=== PATIENT | female | born 1950 | race Caucasian/White ===

== ENCOUNTER 2017-01-07 08:50 | Day surgery (SDC) | payer MEDICARE, OTHER ==
[~2017-01-07] VITALS: Ht 167.6 cm; Wt 68.0 kg
[~2017-01-07 08:50] MED LIST: ACID CONTROL150 MG PO; ADVIL200 MG PO; ASPIR 8181 MG PO; BACLOFEN10 MG PO; CARBAMAZEPINE200 MG PO; CEPHALEXIN500 MG PO; FLUOXETINE HCL20 MG PO; FLUTICASONE PRO16 GM NAS; HYDROCODON-ACE1 EA10 PO; IBUPROFEN400 MG PO; LEVOTHYROXINE50 MCG PO; NASONEX17 GM NAS; NORCO 5-325 TA1 EACH PO; OSTERA TABLET1 EACH PO; OXYTROL FOR WO1 EACH TD; SEROQUEL200 MG PO; STOOL SOFTENER100 MG PO; TEGRETOL XR100 MG PO; TOVIAZ8 MG PO; TRAMADOL HCL50 MG PO; VITAMIN C500 MG PO; VITAMIN E100 UNI1 PO; ZANTAC150 MG; [UNRECOGNIZED DRUG - OTHER] OTIC
--- NOTE | 2017-01-07 14:11 | NUR ---
01/07/17 1411 Yohana Keating 1407-PATIENT ARRIVED TO PACU ON 6L MASK O2 SAT 98% SR. PATIENT REACTIVE BRING HANDS TO FACE ORIENTED TO PLACE. EYES CLOSED. NO DRAINAGE NOTED SHUKRI PAD IN PLACE.
--- NOTE | 2017-01-07 15:05 | NUR ---
PATIENT BACK IN DAY SURGERY ROOM FROM PACU. C/O PAIN IN LOWER BACK. PERIPAD IN PLACE THAT IS CLEAN AND DRY. IV SITE WNL. SCDs ON. GIVEN ICE WATER AND JELLO. CAREGIVER AT BEDSIDE. PATIENT INSISTING TO SEE DR. MCNEIL. REQUESTS I CALL HIM TO COME SEE HER. CALL LIGHT WITHIN REACH.
[2017-01-07] MEDS ORDERED: IBUPROFEN800 MG PO (15:17)
[2017-01-07] MEDS ORDERED: NORCO 5-325 TA1 EACH PO (15:17)
--- NOTE | 2017-01-07 15:59 | NUR ---
PATIENT TOLERATED WATER, JELLO, AND PUDDING. DR MCNEIL IN TO VISIT WITH PATIENT. VS CHECKED. DISCHARGE INSTRUCTIONS GIVEN TO PATIENT AND CAREGIVER. SCDs ON. CALL LIGHT WITHIN REACH.
--- NOTE | 2017-01-07 16:27 | NUR ---
1615: PATIENT ASSISTED TO GET DRESSED. 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 GAIT STEADY. VOID X 1 WITHOUT DIFFICULTY. HAT IN TOILET WAS MISSED. GAIT STEADY. BACK TO ROOM. 1620: IV DC'D WNL. DRESSING APPLIED. GETTING SHOES ON. 1627: PATIENT DISCHARGED TO HOME VIA WHEELCHAIR WITH CAREGIVER.
--- NOTE | 2017-01-08 08:55 | OR ---
[facility] [address], [place] [address] Signed DATE OF PROCEDURE: 01/07/17 PREOPERATIVE DIAGNOSES Postmenopausal bleeding and thickened endometrium. POSTOPERATIVE DIAGNOSES Postmenopausal bleeding and thickened endometrium. PROCEDURE: Hysteroscopy with biopsy. SURGEON: Lamont Chua M.D. ANESTHESIA: General. ESTIMATED BLOOD LOSS: 10 mL. SPECIMEN: Endometrial tissue. DRAINS: None. FINDINGS Small cervix was slightly stenotic os. Uterine cavity sounded to 7 cm, was normal in size and shape. There was a large amount of fluffy endometrial tissue within the cavity making both ostia difficult to see. There was also midline soft tissue mass seemed to be coming from the fundus of the uterus. This was in the middle of the upper endometrial cavity. No other unusual masses or lesions seen. COMPLICATIONS: None. DESCRIPTION OF PROCEDURE The patient brought to the operating room, placed supine position. After adequate general anesthesia was obtained, was placed in dorsal lithotomy position, prepped and draped in usual sterile fashion. The introitus was rather small, so a Anay was used in the posterior vagina and then out and an Allis clamp used to grasp the anterior lip of the cervix. The cervix was too thin to admit the uterine sound, so very small cervical dilator was used and cervix dilated up to a #7-Estonian dilator. The uterine cavity was sounded to 7 cm and the hysteroscope placed in the cervix and entered the uterine cavity under direct visualization. Sterile saline was used as distending medium. The above findings were noted. The MyoSure LITE was then placed through the hysteroscope and the midline mass removed under direct visualization. The endometrial tissue was then also removed in 360-degree fashion starting at the lower segment and extending up around the body around the opening into the fundus. The fundus seemed to have most tissue and this Electronically Signed By: LAMONT CHUA MD 01/08/17 0855 PATIENT NAME: DAVID OCHOA OPERATIVE REPORT DATE OF : 54 PHYSICIAN: LAMONT CHUA MD REPORT #: [id number] REPORT IS CONFIDENTIAL AND NOT TO BE RELEASED WITHOUT AUTHORIZATION [facility] [address] [facility] [place] [address] Signed was taken down until both ostia could be seen and dissection continues a little more to get a good sample around the entire endometrial cavity. At this point, the endometrial cavity was examined, noted to have good hemostasis. Hysteroscope was removed and the Allis clamp removed and the cervix noted to have good hemostasis. All instruments were removed from the vagina. The patient tolerated the procedure well, went to recovery room in good condition. The sponge and instrument counts were correct at the end of the procedure. The [employer] Fluid Collection System registered maximum pressure of 80 mmHg and estimated fluid loss of 415 mL. Some of this noted to be around in the vagina and outside the perineum. The uterine curettings were sent to Pathology for identification. MD DUNCAN Roman/Modl /[id number] cc: Todd Steel MD Electronically Signed By: LAMONT CHUA MD 01/08/17 0855 PATIENT NAME: DAVID OCHOA OPERATIVE REPORT DATE OF : 54 PHYSICIAN: LAMONT CHUA MD REPORT #: [id number] REPORT IS CONFIDENTIAL AND NOT TO BE RELEASED WITHOUT AUTHORIZATION
== END 2017-01-07 16:27 | disposition home or self-care (01) ==
LOC: DS 08:50 → OPS 08:50 → DS 12:30 → OPS 16:27
PROVIDERS: General Practice
PROC: 0UDB8ZX Extraction of Endometrium, Via Natural or Artificial Opening Endoscopic, Diagnostic (ICD-10-PCS; principal; 2017-01-07 12:30)
DX: N84.0 Polyp of corpus uteri (principal); F32.9 Major depressive disorder, single episode, unspecified; G40.909 Epilepsy, unspecified, not intractable, without status epilepticus; E03.9 Hypothyroidism, unspecified; E78.00 Pure hypercholesterolemia, unspecified; F43.10 Post-traumatic stress disorder, unspecified; J31.0 Chronic rhinitis; Z98.890 Other specified postprocedural states
CPT/HCPCS: 00952; 88305; J1885; J2405; J2704; J3010; J7120

== ENCOUNTER 2019-05-25 20:50 | Emergency (ER) | payer MEDICARE, OTHER ==
[~2019-05-25] VITALS: Ht 170.2 cm; Wt 84.8 kg
[~2019-05-25 20:50] MED LIST changes: +IBUPROFEN800 MG PO
[2019-05-25] MEDS ORDERED: DITROPAN XL5 MG PO (21:07)
[2019-05-25] MEDS ORDERED: ADVIL100 MG PO (21:08)
[2019-05-25] MEDS ORDERED: ULTRAM50 MG PO (23:30)
== END 2019-05-25 23:57 | disposition home or self-care (01) ==
LOC: ED 20:50
DX: S20.211A Contusion of right front wall of thorax, initial encounter (principal); W18.30XA Fall on same level, unspecified, initial encounter
CPT/HCPCS: 71101; 99284-25

== ENCOUNTER 2020-03-23 15:35 | Emergency (ER) | payer MEDICARE, OTHER ==
[~2020-03-23] VITALS: Ht 170.2 cm; Wt 84.8 kg
[~2020-03-23 15:35] MED LIST changes: +ADVIL100 MG PO; +DITROPAN XL5 MG PO; +ULTRAM50 MG PO
--- NOTE | 2020-03-24 20:12 | EKG ---
[facility] [address] [facility] [place], [place] [address] Signed Sinus rhythm with premature supraventricular complexes Otherwise normal ECG No previous ECGs available Confirmed by AYAKA DAVIS DO ([id number]) on 03/24/2020 8:11:51 PM Electronically Signed By: AYAKA DAVIS DO 03/24/202011 PATIENT NAME: DAVID OCHOA Electrocardiogram DATE OF : 54 PHYSICIAN: AYAKA DAVIS DO REPORT #: [id number] REPORT IS CONFIDENTIAL AND NOT TO BE RELEASED WITHOUT AUTHORIZATION
== END 2020-03-23 19:56 | disposition home or self-care (01) ==
LOC: ED 15:35
DX: R53.1 Weakness (principal); Z87.891 Personal history of nicotine dependence; Z79.899 Other long term (current) drug therapy
CPT/HCPCS: 80053; 81001; 83735; 84484; 85025; 93005; 93010; 99285-25

== ENCOUNTER 2020-03-30 12:26 | Emergency (ER) | payer MEDICARE, OTHER ==
[~2020-03-30] VITALS: Ht 170.2 cm; Wt 84.8 kg
[~2020-03-30 12:26] MED LIST changes: -ADVIL100 MG PO; +IBUPROFEN100 MG PO; +SEROQUEL100 MG PO; -SEROQUEL200 MG PO
--- OUTSIDE RECORDS SUMMARY | 2020-03-30 12:30 | XMS ---
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 Benny has no Care Guidelines for this patient. [facility]: Visits indicate total known visits. ED/[facility] VISIT TRACKING (12 MO.) 03/30/2020 12:27 [facility] TYPE: Emergency COMPLAINT: - NUMBNESS OF TOES,LEG WEAKNESS 03/23/2020 15:36 [facility] TYPE: Emergency COMPLAINT: - WEAKNESS DIAGNOSES: - Personal history of nicotine dependence - Weakness - Other residential (current) drug therapy 05/25/2019 20:50 [facility] TYPE: Emergency COMPLAINT: - RIB PAIN DIAGNOSES: - Contusion of right front wall of thorax, initial encounter - Fall on same level, unspecified, initial encounter - Pleurodynia INPATIENT VISIT TRACKING (12 MO.) No inpatient visits to display in this time frame [id number]
[2020-03-30] MEDS ORDERED: TOVIAZ8 MG PO (13:47)
== END 2020-03-30 15:17 | disposition home or self-care (01) ==
LOC: ED 12:26
DX: R53.1 Weakness (principal); Z87.891 Personal history of nicotine dependence; Z79.899 Other long term (current) drug therapy
CPT/HCPCS: 73630; 80053; 81001; 84439; 84443; 85025; 99285-25

== ENCOUNTER 2020-04-08 08:58 | Emergency (ER) | payer MEDICARE, OTHER ==
[~2020-04-08] VITALS: Ht 170.2 cm; Wt 84.8 kg
--- OUTSIDE RECORDS SUMMARY | 2020-04-08 09:00 | XMS ---
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 - 2 Visits in 30 Days CARE PROVIDERS There are no care providers on record at this time. Benny has no Care Guidelines for this patient. Lakisha VISIT COUNT (12 MO.) [address] [facility] TOTAL 4 NOTE: Visits indicate total known visits. 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
[2020-04-10] MEDS ORDERED: LEVOTHYROXINE25 MCG PO (12:48)
== END 2020-04-10 15:05 | disposition home or self-care (01) ==
LOC: ED 08:58
DX: K59.00 Constipation, unspecified (principal); R34 Anuria and oliguria; R33.9 Retention of urine, unspecified; Z79.899 Other long term (current) drug therapy
CPT/HCPCS: 51702; 51798; 74177; 80053; 81001; 85025; 97162; 99284-25; A9270; J2405; U0003